=== PATIENT | female | born 1950 | race Caucasian/White ===

== ENCOUNTER 2019-08-27 15:04 | Emergency (ER) | payer MEDICARE ==
[~2019-08-27] VITALS: Ht 162.6 cm; Wt 121.6 kg
[~2019-08-27 15:04] MED LIST: ALBUTEROL2.5 MG/3 M INH; LEVOTHYROXINE50 MCG PO; LOVENOX120 MG SUB-Q; PRADAXA150 MG PO; VITAMIN D5000 UNIT PO
== END 2019-08-27 17:27 | disposition home or self-care (01) ==
LOC: ED 15:04
DX: S43.014A Anterior dislocation of right humerus, initial encounter (principal); W00.2XXA Other fall from one level to another due to ice and snow, initial encounter; E03.9 Hypothyroidism, unspecified; Z87.891 Personal history of nicotine dependence; Z88.0 Allergy status to penicillin; Z79.899 Other long term (current) drug therapy
CPT/HCPCS: 23650; 73030; 99152; 99283-25; J2405; J2704; J3010

== ENCOUNTER 2024-12-26 06:58 | Inpatient (IN) | payer MEDICARE ==
[2024-12-15 11:50] VITALS: BP 147/69
[~2024-12-26] VITALS: Ht 162.6 cm; Wt 110.0 kg
[~2024-12-26 06:58] MED LIST changes: +ACETAMINOPHEN500 MG PO; +ADVIL100 M1 PO; +ATIVAN1 MG PO; +B COMPLEX1 EACH PO; +BIOTIN10 MG PO; +CALCIUM600 MG PO; +CELEBREX50 MG PO; +DEXAMETHASONE4 MG PO; +FLONASE ALLERG9.9 ML NAS; +LACTATED RINGER'S 1,000 ML IV SCH; +LORAZEPAM1 MG PO; +LOVENOX40 MG/0.4; +MAGNESIUM400 MG PO; +MELATONIN5 M2 PO; +ONDANSETRON ODT8 MG PO; +OXYBUTYNIN CHLO10 MG PO; +OXYCODON-ACETA1 EAC2 PO; +PRESERVISION A1 EAC7 PO; +PROBIOTICS1 EACH PO; +SENNA-S TABLET1 EACH PO; +SUPER B-50 COM1 EACH PO; +TYLENOL EXTRA500 MG PO; +TYLENOL325 MG PO; +VITAMIN C250 MG PO; +XARELTO20 MG PO
[2024-12-26] MEDS ORDERED: TRANEXAMIC ACID IN NACL,ISO-OS 1,000 MG/100 ML PIGGYBACK IV SCH ×2 (07:00→11:40)
[2024-12-26] MEDS ORDERED: CEFAZOLIN SODIUM 2 GM/20 ML SYR IV SCH ×2 (07:00→15:00)
[2024-12-26] MEDS ORDERED: IBLOOD GLUCOSE TEST STRIP 1 EA TEST VI PRN (07:00)
[2024-12-26] MEDS ORDERED: PANTOPRAZOLE SODIUM 40 MG TABEC PO SCH (07:00)
[2024-12-26] MEDS ORDERED: INTRA-ARTICULAR ANALGESIC INJECTION XX SCH (07:00)
[2024-12-26] MEDS ORDERED: GABAPENTIN 600 MG TAB PO SCH (07:00)
[2024-12-26] MEDS ORDERED: ondansetron HCL 4 MG TAB PO SCH (07:00)
[2024-12-26] MEDS ORDERED: LIDOCAINE HCL 1% 5 ML SDV INJ ONE (07:00)
[2024-12-26] MEDS ORDERED: OXYCODONE HCL 5 MG TAB PO SCH (07:00)
[2024-12-26 07:33] VITALS: BP 141/59
[2024-12-26] MEDS ORDERED: DEXAMETHASONE SOD PHOS 4 MG/ML VIAL ONE ×3 (07:46)
[2024-12-26] MEDS ORDERED: propofoL 200 MG/20 ML VIAL ONE ×2 (07:46→10:14)
[2024-12-26] MEDS ORDERED: LIDOCAINE HCL 2% 5 ML SDV ONE (07:46)
[2024-12-26] MEDS ORDERED: KETAMINE in NS 50 MG/5 ML SYR ONE (07:47)
[2024-12-26] MEDS ORDERED: OXYCODONE HCL 5 MG TAB PO PRN (08:45)
[2024-12-26] MEDS ORDERED: KETOROLAC TROMETHAMINE 30 MG/ML VIAL IV PRN (08:45)
[2024-12-26] MEDS ORDERED: ASPIRIN 325 MG TAB PO SCH (09:00)
[2024-12-26] MEDS ORDERED: MAGNESIUM SULFATE 1 GM/2 ML VIAL ONE ×2 (09:40)
[2024-12-26] MEDS ORDERED: TRANEXAMIC ACID 1,000 MG/10 ML AMP ONE (10:23)
[2024-12-26] MEDS ORDERED: GABAPENTIN300 MG PO (11:04)
[2024-12-26] MEDS ORDERED: CEFUROXIME250 MG PO (11:04)
[2024-12-26] MEDS ORDERED: ASPIRIN325 MG PO (11:04)
[2024-12-26] MEDS ORDERED: XARELTO10 MG PO (11:05)
[2024-12-26] MEDS ORDERED: OXYCODONE HCL5 MG PO (11:06)
[2024-12-26] MEDS ORDERED: fentaNYL citrate 50 MCG/ML SDV IV PRN (11:30)
[2024-12-26] MEDS ORDERED: droPERidol 5 MG/2 ML VIAL IV PRN (11:30)
[2024-12-26] MEDS ORDERED: NALOXONE HCL 0.4 MG SYR IV PRN (11:30)
[2024-12-26] MEDS ORDERED: ondansetron HCL 4 MG/2 ML VIAL IV PRN (11:30)
[2024-12-26] MEDS ORDERED: HYDROmorphone HCL 1 MG/ML SYR IV PRN (11:30)
[2024-12-26 11:47] LABS: BASOPHILS 0.1 % (0.1-1.2); EOSINOPHILS 0.4 % (0.7-5.8); HEMOGLOBIN 12.9 g/dL (11.2-15.7); MCH 30.4 PG (25.6-32.2); MCHC 33.1 g/dL (32.2-35.5); MCV 91.8 fL (79.4-94.8); MONOCYTES 2.3 % (4.7-12.5); NEUTROPHILS 80.8 % (34.0-71.1); PLATELET COUNT 237 K/uL (182-369); RBC 4.25 M/uL (3.93-5.22)
--- NOTE | 2024-12-26 11:55 | NUR ---
12/26/24 1155 Svitlana Conteh 1058-PT ARRIVES TO PACU VIA STRETCHER, RESTING SEMI FOWLERS, PT A+OX4 DENIES PAIN OR NAUSEA, VSS ON 6L VIA MASK. 1100-PT TITRATED TO RA, VS REMAIN STABLE. 1106-CLINICAL BIOSTATISTICS DIRECTOR AT BEDSIDE FOR POST OP LT HIP X-RAY. 1110-PT C/O SHOB, REPOSITIONED HIGHER IN BED AND HOB RAISED. PT SHAKY BUT DENIES PAIN OR NAUSEA, ONLY REPORTS TROUBLE BREATHING, VSS ON RA. PT DENIES CP. 1115-PT C/O CONTINUED SHOB AND LT JAW PAIN, NOTIFIED, VORB FOR LABS AND EKG, RT CALLED. 1122-RT AT BEDSIDE FOR EKG, AT BEDSIDE TALKING W/ PT, REQUESTING HOSPITALIST CONSULT. 1125- AT BEDSIDE TO EVALUATE PT. 1130-RETICLE PRINTER AT BEDSIDE TO DRAW BLOOD. 1145-PT REPORTS SOME IMPROVEMENT OF SHOB AND JAW PAIN, DENIES CP, VSS ON RA.
[2024-12-26 12:07] LABS: ALBUMIN 3.4 g/dL (3.4-5.0); ALBUMIN/GLOBULIN RATIO 1.21 (1.1-2.4); ANION GAP 8.7 (7-21); BILIRUBIN, TOTAL 0.6 mg/dL (0.2-1.0); BUN/CREATININE RATIO 26.43 (6.0-28.6); CALCIUM 8.6 mg/dL (8.5-10.1); CREATININE, SERUM 0.87 mg/dL (0.55-1.02); POTASSIUM 4.7 mmol/L (3.5-5.1); PROTEIN, TOTAL 6.2 g/dL (6.4-8.2)
[2024-12-26 12:12] LABS: MAGNESIUM 2.9 mg/dL (1.8-2.4)
[2024-12-26 12:28] VITALS: BP 120/59
--- NOTE | 2024-12-26 12:44 | NUR ---
1225-PT BACK TO ROOM 6 FROM PACU ON RA. RECEIVED REPORT FROM URBANO RODARTE. PT IS AWAKE. RESP EVEN AND UNLABORED. RATES PAIN 1/10. DENIES NAUSEA. PT IS FEELING BETTER. DENIES LEFT SIDED JAW PAIN AND SOB. CRYO CUFF IN PLACE AND RUNNING. PT EATING CRACKERS AND DRINKING WATER. LUNCH ORDERED. NO OTHER NEEDS AT THIS TIME. CALL LIGHT WITHIN REACH.
[2024-12-26 13:29] VITALS: BP 125/50
[2024-12-26 14:30] VITALS: BP 133/59
--- NOTE | 2024-12-26 14:49 | NUR ---
1329-PT LAYING IN BED AWAKE. RESP EVEN AND UNLABORED. PT RATES PAIN 2/10 AND THIS IS TOLERABLE AT THIS TIME. CRYO CUFF IN PLACE AND RUNNING. PT HAD LUNCH. PROVIDED PT WITH PUDDING. NO OTHER NEEDS AT THIS TIME. CALL LIGHT WITHIN REACH.
--- NOTE | 2024-12-26 14:52 | NUR ---
LETICIA 1428-PT LAYING IN BED AWAKE. RESP EVEN AND UNLABORED. RATES PAIN /. DENIES NAUSEA. CRYO CUFF IN PLACE AND RUNNING. 1431-PT UP TO BEDSIDE COMMODE WITH 2 RN ASSIST. PT STATES SHE FELT A POP WITH MOVEMENT. PT STILL ABLE TO MOVE AND SIT ON COMMODE. PT VOIDS 300ML OF YELLOW URINE. 1440-PHYSICAL THERAPY IN ROOM WITH PT. PHYSICAL THERAPY ASSISTS PT OFF COMMODE AND ON TO SIDE OF BED. 1454-PHYSICAL THERAPY STATES SHE FELT THE POP WHEN HELPING PT TO WHEELCHAIR. PHONE CALL TO DR. CHAHAL. PHYSICAL THERAPY TO REASSURE PT AND OK TO DO PHYSICAL THERAPY. 1500-PT LEAVES DAY SURGERY WITH PHYSICAL THERAPY. TO DR. CHAHAL. DR. CHAHAL
[2024-12-26] MEDS ORDERED: GABAPENTIN 300 MG CAP PO SCH (15:00)
[2024-12-26] MEDS ORDERED: ACETAMINOPHEN 500 MG TAB PO SCH (15:00)
[2024-12-26 15:42] VITALS: BP 131/66
[2024-12-26] MEDS ORDERED: CELECOXIB200 MG PO ×2 (16:18→17:28)
--- NOTE | 2024-12-26 16:38 | NUR ---
1515-PT BACK TO ROOM 6 FROM PHYSICAL THERAPY. PT UNABLE TO TRANSFER FROM WHEELCHAIR TO BED. STATES LEFT LEG/FOOT FEEL WEIRD. 1523-JOSE STEADY USED TO TRANSFER PT FROM WHEELCHAIR TO BEDSIDE COMMODE. PT VOIDS 500ML OF YELLOW URINE. 1534-JOSE STEADY USED TO TRANSFER PT FROM COMMODE TO BED. PT TOLERATED WELL. 1537-PHYSICAL THERAPY CALLED DR. CHAHAL. ORDERS GIVEN FOR PT TO GO TO [facility] FOR THE NIGHT. [employer] NOTIFIED.
[2024-12-26] MEDS ORDERED: MELATONIN 3 MG TAB PO PRN (16:45)
--- NOTE | 2024-12-26 16:54 | NUR ---
LE 1553-PT LAYING IN BED. RESP EVEN AND UNLABORED. DENIES PAIN WHEN LAYING DOWN. DENIES NAUSEA. CRYO CUFF IN PLACE AND RUNNING. NO OTHER NEEDS AT THIS TIME. CALL LIGHT WITHIN REACH.
--- NOTE | 2024-12-26 17:21 | NUR ---
PATIENT TO MED SURG. PATIENT REQUIRED SARASTEADY TO TRANSFER FROM [facility] TO BED. LEFT HIP DRESSING HAS SMALL SPOTS OF BLOODY DRAINAGE AND DS NURSES INDICATED THAT THIS IS STABLE AND UNCHANGED DRAINAGE. KRYO CUFF TO LEFT HIP. FOOT PUMP SCDS ARE ON, ZAHEER HOSE IN PLACE. PHARMACY IN TO VISIT WITH PATIENT ABOUT HER HOME MEDICATIONS.
[2024-12-26] MEDS ORDERED: PRESERVISION A1 EAC6 PO (17:31)
--- NOTE | 2024-12-26 17:31 | NUR ---
1700-PT TO [facility] ROOM 114. JOSE HOOD USED TO TRANSFER PT FROM STRETCHER TO BED. PT TEARY WITH TRANSFER. STATES PAINFUL. ONCE PT IS IN BED STATES PAIN MUCH BETTER. REPORT GIVEN TO MAGDALENA RODARTE. BEDRAILS UP. CRYO CUFF IN PLACE AND RUNNING. NO OTHER NEEDS AT THIS TIME.
--- NOTE | 2024-12-26 18:33 | EKG ---
[facility] [address] [place] [address] Signed Sinus rhythm with 1st degree AV block Septal infarct , age undetermined T wave abnormality, consider lateral ischemia Abnormal ECG When compared with ECG of 13-NOV-2020 08:24, Inverted T waves have replaced nonspecific T wave abnormality in Lateral leads Confirmed by Bj Jordan MD ([id number]) on 12/26/2024 6:32:59 PM Electronically Signed By: BJ JORDAN MD 12/26/24 1833 PATIENT NAME: SARAH FARLEY FEMI Electrocardiogram DATE OF : 48 PHYSICIAN: BJ JORDAN MD REPORT #: [id number] REPORT IS CONFIDENTIAL AND NOT TO BE RELEASED WITHOUT AUTHORIZATION
--- NOTE | 2024-12-26 18:51 | NUR ---
[address] FOR PATIENT TO VOID. PATIENT IS RESTING COMFORTABLY IN BED. VEGETARIAN SNACKS OFFERED. NO OTHER NEEDS AT THIS TIME.
--- NOTE | 2024-12-26 19:35 | NUR ---
REPORT RECEIVED FROM DAY SHIFT RN. PT LYING IN BED ALERT AND ORIENTED. DENIES NEEDS. WHITE BOARD UPDATED. CALL LIGHT IN REACH.
[2024-12-26] MEDS ORDERED: SENNOSIDES 1 TAB PO SCH (21:00)
[2024-12-26 21:02] VITALS: BP 127/53
--- NOTE | 2024-12-26 21:26 | NUR ---
EVENING ASSESSMENT COMPLETE. SCHEDULED MEDS ADMIN PER EMAR. PT REPORTS LEFT HIP PAIN 09/05. SCHEDULED PAIN MEDS GIVEN. 2PA TO REPOSITION IN BED. LEFT HIP DRESSING WITH SCANT AMOUNT SEROSANG DRESSING. CMS INTACT. BRISK CAP REFILL NOTED BILAT. SCD'S/TEDS IN PLACE. FRESH ICE TO CRYO. PT DENIES QUESTIONS OR CONCERNS. CALL LIGHT IN REACH.
--- NOTE | 2024-12-26 23:28 | NUR ---
PT RESTING WITH EYES CLOSED. AWAKENS EASILY. ABX ADMIN PER EMAR. NO C/O PAIN. PT DENIES NEEDS. CALL LIGHT IN REACH.
[2024-12-27] VITALS (9 sets, daily range): BP systolic 106–146; BP diastolic 50–60
--- NOTE | 2024-12-27 01:46 | NUR ---
PT RESTING WITH EYES CLOSED. AWAKENS EASILY. UP TO BSC WITH JOSE ARRIAGA AND 2 PERSON MAX ASSIST TO VOID 500 ML CONCENTRATED URINE. BACK TO BED, ANDREINA FAIR. ASSESSMENT UNCHANGED. SCD'S/TEDS IN PLACE. FRESH ICE TO CRYO CUFF. LEFT HIP DRESSING INTACT WITH SCANT AMOUNT SEROSANG DRAINAGE. CMS INTACT. VEGETARIAN MENU PROVIDED. PT DENIES FURTHER NEED. CALL LIGHT IN REACH.
--- NOTE | 2024-12-27 04:18 | NUR ---
PT RESTING IN BED WITH EYES CLOSED. RESPIRATIONS EVEN. CALL LIGHT IN REACH.
--- NOTE | 2024-12-27 04:57 | NUR ---
PT UTILIZES CALL LIGHT, REPORTS INCREASED PAIN. PT RATES PAIN 3/10 TO LLE, STATES THAT SHE CAN FEEL PAIN STARTING TO INCREASE NOW THAT SHE IS AWAKE. PRN ADMINISTERED. SEE EMAR. PT PROVIDED WITH FRESH ICE WATER AND GRANOLA BAR. DENIES FURTHER NEEDS AT THIS TIME. CALL LIGHT IN REACH.
--- NOTE | 2024-12-27 05:49 | NUR ---
PT AWAKE IN BED. VS AND I&O OBTAINED. FRESH ICE TO CRYO. PT DENIES NEEDS AT THIS TIME. CALL LIGHT IN REACH.
--- NOTE | 2024-12-27 06:39 | OR ---
[facility] [address] [place], [place] [address] Signed DATE OF OPERATION: 12/26/2024 SURGEON: Lakeshia Mckeon MD PREOPERATIVE DIAGNOSIS: Severe degenerative joint disease, left hip. POSTOPERATIVE DIAGNOSIS: Severe degenerative joint disease, left hip. PROCEDURE PERFORMED: Left total hip arthroplasty with Luis Angel. REALTIME CAPTIONER: None. ANESTHESIA: Spinal. BLOOD LOSS: 175 mL. IMPLANTS: Secure-Fit Advanced size 9 stem and a 50 cup with a -2.5 head. BRIEF HISTORY: Licha is a 74-year-old female with progressive worsening of osteoarthritis for hip. Risks and benefits of operative treatment were discussed with her and she elected to proceed. DESCRIPTION OF PROCEDURE: Once consent was obtained she was taken to the operating room. After adequate anesthesia she was placed on the operating room table. She was placed in the right lateral decubitus position. All downside pressure points were well padded. An axillary roll was placed. The leg was then prepped and draped in a standard sterile fashion. The pins for the Luis Angel computer array were then placed in the posterior third of the iliac crest percutaneously. The hip was then approached through a standard anterior lateral approach. An 8 inch incision was taken through skin and subcutaneous tissue. A long incision was needed due to her body habitus. This was carried through the fat, down to the IT band which was divided longitudinally. The vastus lateralis was then Electronically Signed By: LAKESHIA MCKEON MD 12/27/24 0639 PATIENT NAME: MARTINELICHA PIERRE OPERATIVE REPORT DATE OF : 48 REPORT #: [id number] PHYSICIAN: LAKESHIA MCKEON MD PCP: DONIS TEJEDA MD REPORT IS CONFIDENTIAL AND NOT TO BE RELEASED WITHOUT AUTHORIZATION [facility] [address] [place], [place] [address] Signed divided from the tip of the trochanter distally and extended into the medius and capsule proximally. This was taken all the way to the acetabular rim, then peeled off the anterior femoral neck around to the level of the lesser trochanter. Several large loose bodies were encountered and removed. The leg was then registered with the computer and the hip was dislocated. The femoral neck cut made one fingerbreadth above the lesser trochanter. The femoral head was removed. Periacetabular osteophytes were removed without better visualization. The was removed. The acetabulum was then registered with the computer. A good registration was obtained. The robot was then brought in and the acetabulum was reamed first with a 48 then with a 50. 50 was found to be good fit. We then impacted the 50 cup in 40 degrees of abduction and 20 degrees of anteversion. It fit quite nicely with excellent interference. The acetabular liner was impacted and attention was turned to proximal femur. Prior to this, however, we did remove some superior and anterior superior osteophytes. The proximal femur was opened using michelleie cutter, followed by the Hermes awl. It was then sequentially broached up to an 8. The 8 was left in position, was found to be well fitting. It was reduced with a -3 head. Leg lengths were found to be equal. She had good range of motion. She was then dislocated. An 8 stem was impacted, however, it was not quite stable and did subside more than I wanted it to. We then removed it, broached up to a 9 and placed a 9 stem. This seated well. No fractures in the proximal femur were noted during this. The -3 head was placed and the hip reduced. Again, leg lengths found to be equal. She had good range of motion. The wound was then copiously irrigated with Surgiphor followed by normal saline. The capsule was closed using #2 FiberWire. The vastus and IT band layers were closed independently using #2 Stratafix. Subcutaneous tissue was closed with 2-0 Monocryl for the fat layer, 0 Stratafix for the subcu layer and 3-0 Stratafix for the skin. Wound was sealed with LiquiBand and Steri-Strips and as were the pin sites for the computer array. The wounds were then covered with Acticoat 7 dressings. She was awakened, taken to the recovery room in satisfactory condition. All sponge, needle, and instrument counts were correct. Lakeshia Mckeon MD BA/MODL /[id number] Electronically Signed By: LAKESHIA MCKEON MD 12/27/24 0639 PATIENT NAME: LICHA FARLEY OPERATIVE REPORT DATE OF : 48 REPORT #: [id number] PHYSICIAN: LAKESHIA MCKEON MD PCP: DONIS TEJEDA MD REPORT IS CONFIDENTIAL AND NOT TO BE RELEASED WITHOUT AUTHORIZATION [address] [address] Signed Copies: ~ Electronically Signed By: LAKESHIA MCKEON MD 12/27/24 0639 PATIENT NAME: LICHA FARLEY OPERATIVE REPORT DATE OF : 48 REPORT #: [id number] PHYSICIAN: LAKESHIA MCKEON MD PCP: DONIS TEJEDA MD REPORT IS CONFIDENTIAL AND NOT TO BE RELEASED WITHOUT AUTHORIZATION
[2024-12-27] MEDS ORDERED: LEVOTHYROXINE SODIUM 50 MCG TAB PO SCH (07:00)
--- NOTE | 2024-12-27 07:37 | NUR ---
MORNING REPORT RECIEVED FROM CAYDEN JOINER. PT SITTING UP IN BED WITH EYES CLOSED CHEST RISE EQUAL BILAT CRYO CUFF IN PLACE WITH ZAHEER CRESPO, MONISHAS, AND CPOX. PT HAS CALL LIGHT IN REACH AT THIS TIME.
[2024-12-27] MEDS ORDERED: Rivaroxaban 10 MG TAB PO SCH ×2 (08:00→09:00)
--- NOTE | 2024-12-27 08:46 | NUR ---
HOURLY ROUNDING. PATIENT IS SET UP FOR BREAKFEAST. BREAKFEAST HAS BEEN EATEN IN BED. NO REQUEST FROM PATIENT BOARD HAS BEEN UPDATED
--- NOTE | 2024-12-27 08:47 | NUR ---
medications reconciled using pharmacy records and patient interview. There is confusion with Xarelto dosing. Needs to be clarified with Dr Mckeon prior to discharge
[2024-12-27] MEDS ORDERED: cefuroxime axetiL 250 MG TAB PO SCH (09:00)
[2024-12-27] MEDS ORDERED: CELECOXIB 200 MG CAP PO SCH ×2 (09:00→21:00)
--- NOTE | 2024-12-27 11:00 | NUR ---
Spoke with Monroe and her sister Aimee. Pt plans on dc to a SNF. She was unable to walk with vist from PT yesterday and today. Pt lives alone and does not feel she is safe to go home. Pt dodge a cane mariam walker. She has a ramp into her home. Pt does on line grocery shopping, cleans her own home, and does limited cooking for her self. Pts first choice for a SNF is [facility], then [facility]. Pt choice letter and Care Coordination services card given. Pt denies financial issues or saftey concerns. SNF when bed is available and 3 night IP stay met.
--- NOTE | 2024-12-27 11:17 | NUR ---
HOURLY ROUNDING. CHECKED ON PATIENT CYRO MACHINE TO SEE IF IT NEEDS MORE ICE. CASE MANGEMENT WAS IN THE ROOM. NO REQUEST FROM PATIENT AT THIS TIME
--- NOTE | 2024-12-27 12:37 | NUR ---
PT HAS NO CURRENT CONCERNS AT THIS TIME AND HAS CALL LIGHT IN REACH. PT DENIES PAIN IF LAYING STILL AND DENIES NEED FOR MEDICATION.
--- NOTE | 2024-12-27 13:22 | NUR ---
UR CLINICAL REVIEW: 2 MN FOR VERSALUS-PER LAWYER MEETS INPT FOR THR WITH NEED FOR PLACEMENT DUE TO SAFETY MEDICARE INPT 12/27/24 @ [address] ADMITTING EMAIL TO UPDATE REG NO AUTH REQUIRED PER MEDICARE GUIDELINES PATIENT AGREES TO PLACEMENT. PLAN TO DC TO SNF WHEN STABLE
[2024-12-27] MEDS ORDERED: POLYETHYLENE GLYCOL 3350 1 PACKET PO SCH (13:45)
--- NOTE | 2024-12-27 14:41 | NUR ---
PT IN ROOM SITTING IN CHAIR AT THIS TIME, PT IS WORKING WITH PHYSICAL THERAPY. PT WAS ABLE TO STAND UP TWO TIMES USING THE FWW WITH 2 PERSON HEAVY ASSIST, PT IS STILL BERY UNSTEADY AND WEAK ON THE LEFT HIP/LEG, PT RETURNED TO BED AND TOLD TO CALL IF THEY NEED ANYTHING PT CURRENTLY IN CHAIR WITH CALL LIGHT IN REACH.
--- NOTE | 2024-12-27 15:51 | NUR ---
NOTIFIED BY [facility], THEY CAN ACCEPT THURSDAY FOR ADMISSION TO SNF
--- NOTE | 2024-12-27 17:18 | NUR ---
PT SITTING UP IN CHAIR AT THIS TIME WITH NO PAIN, PT HAS CALL LIGHT IN REACH AND PT IS TRYING TO NAP AT THIS TIME.
--- NOTE | 2024-12-27 18:45 | NUR ---
PT DENIES PAIN AT THIS TIME, PT SITTING UP IN CHAIR AND WANTS TO STAY IN CHAIR UNTIL IT IS TIME TO GO TO BED. PT HAS CALL LIGHT IN REACH.
--- NOTE | 2024-12-27 19:30 | NUR ---
REPORT RECEIVED FROM DAY SHIFT RN. PT SITTING IN RECLINER ALERT AND ORIENTED. DENIES NEEDS. WHITE BOARD UPDATED. CALL LIGHT IN REACH.
--- NOTE | 2024-12-27 21:00 | NUR ---
IN ROOM TO ASSIST pt UP TO BSC FOR BM. pt REFUSES TO AMBULATE. STATES "I HAVEN'T TAKEN A STEP YET." THIS RN ENCOURAGES AMBULATION AND USE OF WALKER, GAIT BELT. pt STATES "I DON'T NEED A LECTURE". REFUSES TO ATTEMPT TO AMBULATE DESPITE EDUCATION. JOSE HOOD USED TO TRANSFER. HEAVY 2PA WITH GAIT BELT TO STAND TO JOSE HOOD. pt REFUSES TO GET TO BSC AT THIS TIME. VOIDS IN BRIEF. BRIEF CHANGED WHILE STANDING. pt REQUESTS PUREWICK, NEW PUREWICK IN PLACED. VFPs ON. CRYO CUFF ON. ASSOCIATE THEATRE PROFESSOR REMAINS IN ROOM FOR VS. CALL LIGHT AND PERSONAL SUPPLIES IN REACH.
--- NOTE | 2024-12-27 22:16 | NUR ---
EVENING ASSESSMENT COMPLETE. SCHEDULED MEDS ADMIN PER EMAR. PT REPORTS LEFT HIP PAIN 09/05. SCHEDULED PAIN MEDS GIVEN. NO C/O NAUSEA. LEFT HIP DRESSING WITH SMALL AMOUNT OLD SHADOWING. SCD'S/TEDS/CRYO IN PLACE. CMS INTACT. BRISK CAP REFILL NOTED BILAT. ASSISTED TO REPOSITION. PT DENIES QUESTIONS OR CONCERNS. CALL LIGHT IN REACH.
--- NOTE | 2024-12-27 23:55 | NUR ---
PT RESTING IN BED WITH EYES CLOSED. RESPIRATIONS EVEN. CALL LIGHT IN REACH.
[2024-12-28] VITALS (8 sets, daily range): BP systolic 115–131; BP diastolic 42–81
--- NOTE | 2024-12-28 01:53 | NUR ---
PT RESTING IN BED WITH EYES CLOSED. RESPIRATIONS EVEN. SpO2 96% ON RA. HR 90'S.
--- NOTE | 2024-12-28 03:57 | NUR ---
PT IN BED RESTING WITH EYES CLOSED. HOB ELEVATED. RESPIRATIONS EVEN AND NON LABORED. CALL LIGHT IN REACH.
--- NOTE | 2024-12-28 06:42 | NUR ---
PT UP TO BSC WITH 2PA USING JOSE STEDY TO VOID 200 ML CONCENTRATED URINE. PT INCONTINENT OF URINE WELL. STAFF ASSIST WITH JI CARE. NEW ATTENDS AND PUREWICK PLACED. BACK TO BED, ANDREINA FAIR. VS AND I&O OBTAINED. SCHEDULED MEDS ADMIN PER EMAR. PT REPORTS LEFT HIP PAIN 10/03. PRN FOR PAIN ADMIN. SCD'S/TEDS/CRYO IN PLACE. ASSESSMENT UNCHANGED. PT DENIES FURTHER NEEDS. CALL LIGHT IN REACH.
--- NOTE | 2024-12-28 07:15 | NUR ---
REPORT RECEIVED FROM SUPERVISING EDITOR NEWS REEL CAYDEN JOINER. PATIENT IS LYING IN BED WITH HOB ELEVATED. PATIENT GIVEN THE ROOM PHONE AND A FRESH CUP OF ICE WATER PER PATIENT REQUEST. PATIENT STATED NO FURTHER NEEDS AT THIS TIME. CALL LIGHT AND PERSONAL BELONGINGS ARE WITHIN REACH.
--- NOTE | 2024-12-28 08:00 | NUR ---
PATIENT IS LYING IN BED WITH HOB ELEVATED. PATIENT WITH EYES OPEN AND RESPIRATIONS ARE EVEN AND UNLABORED. 0800 AND 0900 MEDICATIONS ADMINISTERED PER THE EMAR. FULL ASSESSMENT COMPLETE AND DOCUMENTED IN THE CHART. PATIENT IS ALERT AND ORIENTED TIMES FOUR. PATIENT WITH PT AND OT ORDERED. SCDS, ZAHEER HOSE, AND CRYP CUFF IN PLACE. ACTICOAT ON LEFT HIP WITH SMALL AMOUNT OF DRY SEROSANGUINEOUS DRAINAGE NOTED ON THE DRESSING. IV FLUSHED WITH 10 ML NORMAL SALINE AND IS SALINE LOCKED. IV DRESSING IS CLEAN, DRY, AND INTACT. PATIENT IS ON ROOM AIR AND LUNG SOUNDS ARE CLEAR THROUGHOUT. PATIENT IS ON A REGULAR DIET BUT IS VEGETARIAN. BOWEL TONES ARE ACTIVE IN ALL FOUR QUADRANTS. CARDIAC WITH NORMAL S1 AND S2 ON AUSCULOTATION. CAPILLARY REFILL IS LESS THAN 3 SECONDS IN THE UPPER AND LOWER EXTREMITIES BILATERALLY. RADIAL AND PEDAL PULSES ARE STRONG BILATERALLY. GENERALIZED EDEMA NOTED TO THE LEFT HIP. SENSATION INTACT WITH NO COMPLAINTS OF NUMBNESS OR TINGLING. PATIENT RATED PAIN 2/10 IN THE BILATERAL LOWER LEGS. SCHEDULED TYLENOL ADMINISTERED. CRYO CUFF IN PLACE ON THE LEFT HIP. PATIENT PROVIDED A FRESH CUP OF ICE WATER PER PATIENT REQUEST. PATIENT STATED NO FURTHER NEEDS AT THIS TIME. CALL LIGHT AND PERSONAL BELONGINGS ARE WITHIN REACH.
--- NOTE | 2024-12-28 08:59 | NUR ---
H&P AND PT NOTES FAXED TO [facility]
--- NOTE | 2024-12-28 09:15 | NUR ---
PATIENT IS WORKING WITH PHYSICAL THERAPY AT THIS TIME.
--- NOTE | 2024-12-28 10:16 | NUR ---
PATIENT IS LYING IN BED WITH HOB ELEVATED. OSKAR FREEMAN IS IN THE ROOM AND HELPING THE PATIENT WITH THE CRYO CUFF. PATIENT WITH EYES OPEN AND RESPIRATIONS ARE EVEN AND UNLABORED. PATIENT IS ON THEIR PHONE. PATIENT REPORTS NO NEEDS AT THIS TIME. CALL LIGHT AND PERSONAL BELONGINGS ARE WITHIN REACH.
--- NOTE | 2024-12-28 10:30 | NUR ---
PATIENT UPDATED [facility] WILL ACCEPT HER ON THURSDAY. INFORMED OF BELONGINGS SHE WILL NEED TO HAVE WITH HER. ALSO DISCUSSED TRANSPORTATION. SHE PREFERS A WHEELCHAIR [facility]AN FOR TRANSPORT AND STATES SHE WILL PAY WITH HER CARD OR CHECK FOR TRANSPORT. NO OTHER QUESTIONS AT THIS TIME. DR. CHAHAL ALSO UPDATED.
--- NOTE | 2024-12-28 11:19 | NUR ---
PATIENT IS LYING IN BED WITH THE HOB ELEVATED. PATIENT WITH EYES OPEN AND RESPIRATIONS ARE EVEN AND UNLABORED. PATIENT IS SPEAKING WITH A VISITOR AT THE END OF THE BED. PATIENT STATED NO FURTHER NEEDS AT THIS TIME. CALL LIGHT AND PERSONAL BELONGINGS ARE WITHIN REACH.
--- NOTE | 2024-12-28 11:21 | NUR ---
PT NOT AVAILABLE FOR VISIT. PROVIDED PRAYER.
--- NOTE | 2024-12-28 12:11 | NUR ---
PATIENT IS SITTING IN THE CHAIR WITH BILATERAL LOWER EXTREMITIES ELEVATED. PATIENT WITH EYES OPEN AND RESPIRATIONS ARE EVEN AND UNLABORED. PATIENT WITH TWO VISITORS IN THE ROOM AT THIS TIME. CALL LIGHT AND PERSONAL BELONGINGS ARE WITHIN REACH.
--- NOTE | 2024-12-28 13:44 | NUR ---
PATIENT IS SITTING IN THE CHAIR WITH BILATERAL LOWER EXTREMITIES ELEVATED. PATIENT WITH EYES OPEN AND RESPIRATIONS ARE EVEN AND UNLABORED. 1500 MEDICATIONS ADMINISTERED PER THE EMAR. CRYO CUFF RE-FILLED WITH FRESH ICE AND WATER. PATIENT STATED NO FURTHER NEEDS AT THIS TIME. CALL LIGHT AND PERSONAL BELONGINGS ARE WITHIN REACH.
--- NOTE | 2024-12-28 13:55 | NUR ---
IN TO DO VIALS, PATIENT SITTING UP IN THE CHAIR. PATIENT DENIES NEEDS AT THIS TIME. CALL LIGHT AND PERSONAL BELONGINGS WITHIN REACH. LEGS ELEVATED AND SCDS IN PLACE.
--- NOTE | 2024-12-28 14:55 | NUR ---
PATIENT IS SITTING IN THE CHAIR AND WAITING TO USE THE BATHROOM. OSKAR FREEMAN AND OSKAR MORA ARE IN THE ROOM AT THIS TIME AND GOING TO HELP THE PATIENT TO THE BATHROOM. PATIENT RATED PAIN 1/10 IN THE LEFT HIP AND IS NOT REQUESING ANYTHING FOR PAIN AT THIS TIME. IV SITE IS LEAKING. PATIENT REQUESTING TO WAIT ON GETTING A NEW IV AT THIS TIME. DRESSING ON THE LEFT HIP WITH SMALL AMOUNTS OF DRY SEROSANGUINEOUS DRAINAGE NOTED. PATIENT STATED NO FURTHER NEEDS AT THIS TIME. CALL LIGHT AND PERSONAL BELONGINGS ARE WITHIN REACH.
--- NOTE | 2024-12-28 15:11 | NUR ---
PATIENT IS IN THE BATHROOM WITH OSKAR MORA AND OSKAR FREEMAN AT THIS TIME.
--- NOTE | 2024-12-28 15:19 | NUR ---
NOTIFIED OF THE PATIENT IV SITE LEAKING. THERE ARE NO ORDERS FOR IV MEDICATIONS OR MAINTENACE. STATED SHE WOULD BE OKAY WITHOUT ONE. WITH NO FURTHER ORDERS AT THIS TIME. CALL ENDED.
--- NOTE | 2024-12-28 15:40 | NUR ---
ASSISTED PATIENT TO THE BATHROOM VIA JOSE HOOD WITH OSKAR FREEMAN. PROVIDED JI CARE AND CHANGED HER BREIF. PATIENT BACK TO BED WITH CALL LIGHT AND PERSONAL BELONGINGS IN REACH. SHE DENIES NEEDS AT THIS TIME.
--- NOTE | 2024-12-28 15:59 | NUR ---
IN TO ASK ABOUT SHOWER, PATIENT IN BED APPEARS TO BE SLEEPING. WILL CHECK BACK IN LATER. CALL LIGHT IN REACH. FAMILY MEMBER AT BEDSIDE.
--- NOTE | 2024-12-28 16:11 | NUR ---
PATIENT IS LYING IN BED WITH HOB ELEVATED. PATIENT IS SPEAKING WITH A VISITOR WHO IS STANDING AT THE BEDSIDE. PATIENT STATED NO NEEDS AT THIS TIME. CALL LIGHT AND PERSONAL BELONGINGS ARE WITHIN REACH.
--- NOTE | 2024-12-28 17:11 | NUR ---
PATIENT IS LYING IN BED WITH HOB ELEVATED. PATIENT WITH EYES CLOSED AND RESPIRATIONS ARE EVEN AND UNLABORED. CALL LIGHT AND PERSONAL BELONGINGS ARE WITHIN REACH.
--- NOTE | 2024-12-28 18:16 | NUR ---
PATIENT IS LYING IN BED WITH HOB ELEVATED AND EATING DINNER. PATIENT STATED NO NEEDS AT THIS TIME. CALL LIGHT AND PERSONAL BELONGINGS ARE WITHIN REACH.
--- NOTE | 2024-12-28 19:33 | NUR ---
REPORT RECEIVED FROM CAYDEN MURPHY. PATIENT SITTING IN SEMIFOWLERS POSITION, WATCHING TV AND IN NO ACUTE DISTRESS. RESPIRATIONS ARE EVEN AND UNLABORED. PATIENT DECLINES ANY NEEDS, CALL LIGHT IN REACH.
--- NOTE | 2024-12-28 20:00 | NUR ---
CALL LIGHT ANSWERED. pt REFUSES TO ATTEMPT TO USE WALKER TO PIVOT TRANSFER TO BSC, REQUESTS JOSE STEADY DUE TO FEAR, HAS NOT AMBULATED WITH WALKER PER pt. 2PA WITH JOSE STEADY TO RESTROOM. pt USES BATHROOM CALL LIGHT WHEN FINISHED, UNMEASURED VOID. NEW ATTENDS PLACED. pt REQUIRES 2PA IN AND OUT OF BED. BACK IN BED WITH CALL LIGHT AND PERSONAL SUPPLIES IN REACH.
--- NOTE | 2024-12-28 21:13 | NUR ---
PATIENT REQUESTED PAIN MEDICATION FOLLOWING GETTING OUT OF BED TO THE RESTROOM. PATIENT BACK IN BED, SCHEDULED MEDICATIONS ADMINISTERED. VS OBTAINED AND RECORDED, INTAKE AND OUTPUT DOCUMENTED. PRN PAIN MEDICATION ADMINISTERED PER PATIENT REQUEST. ASSESSMENT COMPLETED. NO FURTHER NEEDS IDENTIFIED, CALL LIGHT IN REACH.
--- NOTE | 2024-12-28 23:39 | NUR ---
CALL LIGHT ANSWERED. PT NEEDED TO USE BATHROOM. THIS NURSING SECRETARY AND CAYDEN BRYAN 2PA TO BS WITH FWW. PT REQUESTED PRIVACY AND CALL LIGHT WAS LEFT WITHIN REACH AND PT REMINDED TO CALL BEFORE GETTING UP. CALL LIGHT ANSWERED. PT DONE ON BSC. THIS NURSING SECRETARY AND CAYDEN ESPINOZA BEGAN 2PA BACK TO BED. PT THEN STATED "I JUST CANT DO IT". PT THEN BEGAN LEANING FORWARD ON WALKER. CAYDEN ESPINOZA AND THIS NURSING SECRETARY INSTRUCTED PT TO STAND UP STRAIGHT MULTIPLE TIMES. PT REFUSED TO STAND UP STRAIGHT TO STEADY HERSELF. CAYDEN VOGEL CAME INTO ROOM TO ASSIST. PT THEN BECAME DEADWEIGHT AND REFUSED TO STAND UP STRAIGHT AND GET LEGS UNDER HER DESPITE INTRUCTION FROM CAYDEN VOGEL, CAYDEN ESPINOZA AND THIS NURSING SECRETARY. CAYDEN VOGEL RETRIEVED BSC TO LET PT SIT. PT 3PA TO BSC. PT INSTRUCTED ON HOW TO PIVOT FOOT AND USE FWW WHEN MOVING. PT THEN ASSISTED FROM BSC TO BED. SCDS AND CRYO CUFF PLACED BACK ON PT. PT EDUCATED ON HOW TO AVOID SITUATIONS LIKE THIS WHERE SHE ALMOST FELL DESPITE CONSTANT INSTUCTION FROM STAFF ON CORRECT MOVEMENTS. PT STATED "IF I FALL I FALL". PT STATES NO FURTHER NEEDS AT THIS TIME. CALL LIGHT WITHIN REACH.
[2024-12-29] VITALS (10 sets, daily range): BP systolic 106–132; BP diastolic 39–73
--- NOTE | 2024-12-29 00:25 | NUR ---
ROUNDED ON PATIENT, PATIENT AWAKE AND ALERT, REPORTS THAT HER LEG IS "HURTING BUT DOESN'T KNOW WHY". SUPPORTED PATIENT LEFT LEG WITH PILLOW AND ENCOURAGED PATIENT TO CHANGE POSITIONING OF HOB DUE TO PATIENT ATTEMPTING TO SIT STRAIGHT UP. PATIENT LOWERED HOB AND REPORTS RELIEF OF PAIN. NO FURTHER NEEDS, CALL LIGHT IN REACH.
--- NOTE | 2024-12-29 02:08 | NUR ---
ROUNDED ON PATIENT, PATIENT RESTING WITH EYES CLOSED. RESPIRATIONS ARE EVEN AND UNLABORED. NO NEEDS IDENTIFIED, CALL LIGHT IN REACH
--- NOTE | 2024-12-29 04:33 | NUR ---
ROUNDED ON PATIENT, PATIENT RESTING WITH EYES CLOSED, RESPIRATIONS EVEN AND UNLABORED. NO NEEDS IDENTIFIED, CALL LIGHT IN REACH
--- NOTE | 2024-12-29 06:38 | NUR ---
VS OBTAINED AND RECORDED. SCHEDULED MEDS ADMIN PER ORDER. PATIENT REPORTS SHE FEELS THAT SHE IS DOING WELL, BUT SHE IS FEELING A LITTLE DISCOURAGED ABOUT HOW HARD HER RECOVERY HAS BEEN. RN TALKED TO PATIENT ABOUT RECOVERY AND ENCOURAGED HER, PATIENT FEELS BETTER AND MOTIVATED TO MOVE MORE TODAY. FRESH WATER PROVIDED, SHE DENIES ANY NEEDS, CALL LIGHT IN REACH.
--- NOTE | 2024-12-29 07:01 | NUR ---
REPORT RECEIVED FROM GENERATION TECHNICIAN RN IRVIN. CAYDEN BRYAN AND THIS RN ROUNDED WITH AT THIS TIME. PATIENT REPORTS NO NEEDS AT THIS TIME. CALL LIGHT AND PERSONAL BELONGINGS ARE WITHIN REACH.
[2024-12-29] MEDS ORDERED: OXYCODONE HCL 5 MG TAB PO PRN (07:15)
--- NOTE | 2024-12-29 08:40 | NUR ---
0800 AND 0900 MEDICATIONS ADMINISTERED PER THE EMAR. PATIENT ASSISTED BACK TO BED AFTER USING THE BEDSIDE COMMODE. PATIENT TOLERATED WELL. PATIENT IS ON BED REST PER MD ORDER. TO COME IN DURING LUNCH TO MEET WITH THE PATIENT. FULL ASSESSMENT COMPLETE AND DOCUMENTED IN THE CHART. PATENT IS ALERT AND ORIENTED TIMES FOUR. PATIENT LAST BM WAS 12/25/24. PATIENT RATED PAIN 2/10 IN THE LEFT AFTER GETTING SITUATED IN BED. PATIENT IS NOT REQUESTING ANYTHING FOR PAIN. CRYO CUFF IN PLACE WITH FRESH ICE. PUREWICK IN PLACE. PATIENT WITH ZAHEER HOSE AND FOOT PUMPS IN PLACE BILATERALLY. ACTICOAT IS ON THE LEFT HIP WITH SCANT AMOUNT OF AREAS WITH DRY DRAINAGE. DRESSING SECURED WITH FOAM TAPE. PATIENT REMAINS WITH NO IV SITE. PATIENT IS ON ROOM AIR AND LUNG SOUNDS ARE CLEAR THROUGHOUT. PATIENT IS ON A REGULAR DIET WITH ACTIVE BOWEL TONES IN ALL FOUR QUADRANTS. CARDIAC WITH NORMAL S1 AND S2 ON AUSCULTATION. RADIAL AND PEDAL PULSES ARE STRONG BILATERALLY. CAPILLARY REFILL IN THE UPPER AND LOWER EXTREMITIES IS LESS THAN 3 SECONDS BILATERALLY. GENERALIZED EDEMA NOTED TO THE LEFT HIP. SENSATION INTACT WITH NO COMPLAINTS OF NUMBNESS OR TINGLING. PATIENT STATED NO FURTHER NEEDS AT THIS TIME. CALL LIGHT AND PERSONAL BELONGINGS ARE WITHIN REACH.
--- NOTE | 2024-12-29 08:45 | NUR ---
Spoke with Licha. She is asking, "Whats up?" In report we were notified pt has a new fx. Dr. Mckeon will be in to see pt at noon. Pt stating I just want to know whats happening and why I can't have breakfast. Texted Dr. Mckeon and asked if I can let her know she has a fx and you will visit. He replied yes and to let her have breakfast. Updated RN. Updated Licha she has a fx and I don't have any further infor. She is wanting to know if she will go to [facility] or require further surgery. I let her know I don't have any of this infor, Dr. Mckeon will be over around noon and answer her questions. Pt begins crying and states, "at least I have a reason why I am so painful and can't walk". Pt denies other needs. Plans on watching movies and eating breakfast now.
[2024-12-29] MEDS ORDERED: bisacodyL 5 MG TABEC PO SCH (09:00)
--- NOTE | 2024-12-29 09:07 | NUR ---
ERNESTO WITH CASE MANAGEMENT GAVE PATIENT AN UPDATE AT THIS TIME. PATIENT IS LYING IN BED WITH HOB ELEVATED. PATIENT SET UP TO EAT BREAKFAST AT THIS TIME. FRESH CUP OF ICE WATER PROVIDED. PATIENT STATED NO FURTHER NEEDS AT THIS TIME. CALL LIGHT AND PERSONAL BELONGINGS ARE WITHIN REACH.
--- NOTE | 2024-12-29 09:45 | NUR ---
PATIENT WAS IN BED AT THIS TIME, I GOT HER A WARM WASH CLOTH TO WASH HER FACE, AND HER TOOTHBRUSH, MOUTH WASH AND DEODRANT, STRAIGHTENED HER UP IN BED, AND A FRESH PILLOW FOR UNDER HER RIGHT ARM. I ALSO CLEANED UP HER ROOM A BIT, CALL LIGHT WITH IN REACH AND NOTHING ELSE NEEDED AT THIS TIME.
--- NOTE | 2024-12-29 10:00 | NUR ---
PATIENT IS LYING IN BED WITH HOB ELEVATED. PATIENT IS ON ROOM AIR AND STATED NO PAIN WHEN ASKED BY THIS RN. PUDDING AND CRACKERS PROVIDED PER PATIENT REQUEST. PATIENT STATED NO FURTHER NEEDS AT THIS TIME. CALL LIGHT AND PERSONAL BELONGINGS ARE WITHIN REACH.
--- NOTE | 2024-12-29 10:07 | NUR ---
3P(HEAVY)A TO THE BS WITH GAIT BELT AND FWW. PATIENT'S BRIEF AND PAD WERE SOAKED WITH URINE. PATIENT REPORTED NEEDING TO USE THE COMMODE DURING THE NIGHT BUT NOT CALLING AND [employer] DEVELOPER NOT CHECKING THEIR BRIEF CONSISTENTLY. CHARGE NURSE KETURAH, CAYDEN MURPHY, AND DEPT. BUSINESS OBJECTS REPORT DEVELOPER CHINTAN NOTIFIED. PATIENT WAS PUT ON BED REST AND A PUREWICK WAS PLACED AT 0830. CALL LIGHT AND PERSONAL ITEMS ARE WITHIN REACH. CAYDEN MURPHY IN ROOM FOR MEDICATIONS. HELP WAS OFFERED AND DECLINED, NO OTHER CARES WERE REQUESTED.
--- NOTE | 2024-12-29 11:02 | NUR ---
PATIENT IS LYING IN BED WITH HOB ELEVATED. PATIENT WITH EYES OPEN AND RESPIRATIONS ARE EVEN AND UNLABORED. PATIENT REPORTS NO PAIN AT THIS TIME. PATIENT STATED NO FURTHER NEEDS. CALL LIGHT AND PERSONAL BELONGINGS ARE WITHIN REACH.
[2024-12-29 11:48] LABS: BASOPHILS 0.3 % (0.1-1.2); EOSINOPHILS 1.2 % (0.7-5.8); HEMATOCRIT 26.1 % (34.1-44.9); HEMOGLOBIN 8.6 g/dL (11.2-15.7); LYMPHOCYTES 12.8 % (19.3-51.7); MCH 30.5 PG (25.6-32.2); MCV 92.6 fL (79.4-94.8); MONOCYTES 8.2 % (4.7-12.5); NEUTROPHILS 76.7 % (34.0-71.1); PLATELET COUNT 223 K/uL (182-369); RBC 2.82 M/uL (3.93-5.22)
--- NOTE | 2024-12-29 11:58 | NUR ---
Update from Dr. Mckeon. Pt will need to transfer to [facility] for further surgery. Dr. Mckeon spoke with them and they have an accepting surgeon, now waiting on a bed. Pt will need to go by [facility] as the surgery could be as soon as tonight. Pt was concerned about the cost. Nurse will assist pt with calling Medicare to check for coverage as pt does not have [facility] insurance. Dr. platt wanted to know if pt could be accepted by Lilly Méndez from [facility]. Lilly Méndez is willing to accept her the beginning of next week. I will provide information for [facility] about Lilly Méndez and their admission person.
--- NOTE | 2024-12-29 12:12 | NUR ---
PATIENT IS LYING IN BED WITH HOB ELEVATED. PATIENT IS ON THE PHONE. PATIENT WITH A VISITOR IN THE ROOM. CALL LIGHT AND PERSONAL BELONGINGS ARE WITHIN REACH.
[2024-12-29 12:18] LABS: ALBUMIN 2.3 g/dL (3.4-5.0); ALBUMIN/GLOBULIN RATIO 0.74 (1.1-2.4); ANION GAP 10.1 (7-21); BILIRUBIN, TOTAL 0.6 mg/dL (0.2-1.0); BUN/CREATININE RATIO 33.33 (6.0-28.6); CALCIUM 8.4 mg/dL (8.5-10.1); CREATININE, SERUM 0.84 mg/dL (0.55-1.02); POTASSIUM 4.1 mmol/L (3.5-5.1); PROTEIN, TOTAL 5.4 g/dL (6.4-8.2)
--- NOTE | 2024-12-29 13:39 | NUR ---
PATIENT IS LYING IN BED WITH THE HOB ELEVATED. PATIENT REMAINS ON ROOM AIR. PATIENT WITH EYES OPEN AND RESPIRATIONS ARE EVEN AND UNLABORED. PATIENT HAS NO COMPLAINTS OF PAIN WHEN ASKED BY THIS RN. DRESSING ON THE LEFT HIP WITH SMALL AMOUNTS OF DRY SEROUSANGUINEOUS DRAINAGE NOTED. FOAM TAPE IS ON THE BOTTOM THE DRESSING TO HELP KEEP IT SECURE. CRYO CUFF IN PLACE WITH A BARRIER ON THE SKIN. BILATERAL PEDAL PULSES ARE STRONG. FOOT PUMPS IN PLACE. PATIENT NOTIFIED OF NOT HAVING AN UPDATE ON TRANSFER. PATIENT EXPRESSED UNDERSTANDING. PATIENT ASKED RN ABOUT BOWEL REGIMENT MEDICATIONS THIS EVENING. PATIENT EDUCATED AND SHE EXPRESSED UNDERSTANDING. PATIENT STATED NO FURTHER NEEDS AT THIS TIME. CALL LIGHT AND PERSONAL BELONGINGS ARE WITHIN REACH.
--- NOTE | 2024-12-29 15:20 | NUR ---
PATIENT IS LYING IN BED WITH HOB ELEVATED. PATIENT WITH EYES OPEN AND RESPIRATIONS ARE EVEN AND UNLABORED. PATIENT REPORTS "WAITING FOR ERNESTO TO TELL ME SOMETHING". PATIENT STATED NO FURTHER NEEDS AT THIS TIME. CALL LIGHT AND PERSONAL BELONGINGS ARE WITHIN REACH.
--- NOTE | 2024-12-29 16:06 | NUR ---
PATIENT IS LYING IN BED WITH HOB ELEVATED AND SPEAKING WITH ERNESTO, FROM CASE MANAGEMENT AT THIS TIME. CALL LIGHT AND PERSONAL BELONGINGS ARE WITHIN REACH.
--- NOTE | 2024-12-29 16:10 | NUR ---
In and assisted aids to turn pt for care. Updated pt. I contacted Dr. Mckeon and she will not be bedbound for 30 days. When she discharges from [facility] she may ride in a private car or wc van. Pt would prefer a car as it will most likely take 3.5-4 hrs to get to [place] from [place]. I added a letter to the transfer pack with information for Lilly Méndze when pt is discharged from [facility].
--- NOTE | 2024-12-29 16:10 | NUR ---
PATIENT WAS IN BED AT THIS TIME, OSKAR KILPATRICK NEEDED ASSISTANCE WITH CHANGING PATIENTS LINEN, GOWN, PATTI, AND SHEETS. PATIENCE AARONTERRANCE DID NOT CATCH EVERYTHING, SO HER BED WAS VERY SOILED. WE CHANGED EVERYTHING AND CLEANED HER UP THE BEST WE COULD, PATIENT IS IN ALOT OF PAIN! AND HAD A VERY DIFFICULT TIME ROLLING AND ADJUSTING, CASE MANAGMENT/CAYDEN OROZCO HELPED US ROLL HER AND GET HER CLEANED UP. CALL LIGHT WITH IN REACH AND NOTHING ELSE NEEDED AT THIS TIME.
--- NOTE | 2024-12-29 16:12 | NUR ---
PATIENT IN BED AT THIS TIME. THIS MANAGER BEHAVIORAL AND OSKAR ANTONIO WENT INTO PATIENTS ROOM TO CHANGE PATIENTS PUREWICK. PATIENT HAD PUREWICK ON BUT NO BRIEF ON, PATIENTS LINENS AND GOWN WERE SOILED. THIS MANAGER BEHAVIORAL AND OSKAR ANTONIO DID COMPLETE BED BATH ON PATIENT, CHANGED PATIENTS LINENS AND PROVIDED FRESH GOWN TO PATIENT. CAYDEN MURPHY NOTIFIED. CALL LIGHT WITHIN REACH, NO FURTHER NEEDS AT THIS TIME.
--- NOTE | 2024-12-29 17:38 | NUR ---
PATIENT IS LYING IN BED WITH HOB ELEVATED. PATIENT WITH EYES OPEN AND RESPIRATIONS ARE EVEN AND UNLABORED. PATIENT REPORTS PAIN IS BETTER. PATIENT WITH NO FURTHER NEEDS. CALL LIGHT AND PERSONAL BELONGINGS ARE WITHIN REACH.
--- NOTE | 2024-12-29 17:38 | NUR ---
PT TO BE TRANSFERRED, BANKING CONSULTANT STILL WAITING FOR BED. VERIFIED WITH DR. CHAHAL VIA TELEPHONE CALL TO SEE IF HE WOULD LIKE TO DISCONTINUE XARELTO AT THIS TIME. PER MD, HOLD TOMORROW MORNING DOSE AT THIS TIME-NOT ADMINISTERED 0800 DOSE FOR 12/30 AT THIS TIME. SEE MAR. PRIMARY RN NOTIFIED AND UPDATED.
--- NOTE | 2024-12-29 18:03 | NUR ---
PATIENT IN BED AT THIS TIME. TAPE CONTROL SKIN OR SPAR MILL OPERATOR CAHRTED VITALS AND I&O'S. CALL [facility] WITHIN REACH, NO FURTHER NEEDS.
--- NOTE | 2024-12-29 18:11 | NUR ---
PATIENT IS LYING IN BED WITH HOB ELEVATED. WARM BLANKET PROVIDED PER PATIENT REQUEST. PATIENT STATED NO FURTHER NEEDS AT THIS TIME. CALL LIGHT AND PERSONAL BELONGINGS ARE WITHIN REACH.
--- NOTE | 2024-12-29 19:21 | NUR ---
REPORT RECEIVED FROM CAYDEN MURPHY. pt RESTING IN BED, DROWSY. AWAKENS TO RN OPENING DOOR THEN CLOSES EYES. NO DISTRESS NOTED. CALL LIGHT IN REACH.
--- NOTE | 2024-12-29 20:22 | NUR ---
pt ASSESSMENT COMPLETE. DENIES PAIN. NEW IV STARTED LEFT HAND, SL WNL. VSS. pt VOIDS IN BRIEF AFTER PUREWICK REMOVED. NEW BRIEF AND JI PAD PLACED FOR TRANSPORT. pt'S FRIEND ALEJO CAME FOR pt'S PERSONAL BELONGINGS, CRYO CUFF. pt WITH BAG OF BELONGINGS ON STRETCHER AND CELL PHONE. QUESTIONS ANSWERED. ATTEMPT TO CALL FOR REPORT TO [facility].
--- NOTE | 2024-12-29 20:42 | NUR ---
PHONE CALL FROM [facility] CAYDEN SUÁREZ, TRANSFER REPORT GIVEN.
== END 2024-12-29 20:10 | disposition short-term general hospital (02) | DRG 470 ==
LOC: DS 06:58 → MS 06:58 → DS 09:05 → MS 16:47 → DS 12-27 11:30 → MS 12-27 11:30
PROVIDERS: ADMIT Specialist; ATTEND Specialist
PROC: 0SRB0JZ Replacement of Left Hip Joint with Synthetic Substitute, Open Approach (ICD-10-PCS; principal; 2024-12-27)
PROC: 8E0Y0CZ Robotic Assisted Procedure of Lower Extremity, Open Approach (ICD-10-PCS; 2024-12-27)
DX: M16.0 Bilateral primary osteoarthritis of hip (principal); E03.9 Hypothyroidism, unspecified; J45.909 Unspecified asthma, uncomplicated; R25.1 Tremor, unspecified; R68.84 Jaw pain; Z96.642 Presence of left artificial hip joint; Z86.73 Personal history of transient ischemic attack (TIA), and cerebral infarction without residual deficits; Z85.43 Personal history of malignant neoplasm of ovary; Z86.711 Personal history of pulmonary embolism; Z79.01 Long term (current) use of anticoagulants; Z88.0 Allergy status to penicillin; Z88.1 Allergy status to other antibiotic agents; Z79.890 Hormone replacement therapy; Z98.890 Other specified postprocedural states; Z90.89 Acquired absence of other organs; Z90.710 Acquired absence of both cervix and uterus; Z90.722 Acquired absence of ovaries, bilateral; Z98.42 Cataract extraction status, left eye; Z87.891 Personal history of nicotine dependence; Z88.8 Allergy status to other drugs, medicaments and biological substances; Z79.82 Long term (current) use of aspirin; Z79.899 Other long term (current) drug therapy; Z79.2 Long term (current) use of antibiotics; Z79.891 Long term (current) use of opiate analgesic; Z85.89 Personal history of malignant neoplasm of other organs and systems
CPT/HCPCS: 01214; 36415; 51798; 72170; 73502; 80053; 83735; 84484; 85025; 85379; 93005; 93010; 96374; 97110; 97162; 97166; 97530; 97535; A9270; C1713; C1776; J0690; J1100; J2003; J2704; J3475; J3490; J7121